=== PATIENT | female | born 1955 | race Caucasian/White ===

== ENCOUNTER → 2016-09-20 | Outpatient (CLI) | payer OTHER ==
[~2016-09-20] VITALS: Ht 154.9 cm; Wt 60.8 kg
[~2016-09-20] MED LIST: ACYCLOVIR 400400 MG PO; ALLEGRA ALLERG180 MG PO; ALLEGRA ALLERGY60 MG PO; ALLEGRA180 MG PO; AMLODIPINE BESY10 MG PO; AUGMENTIN 875875 MG PO; BENICAR40 MG PO; CALCIUM 500 +1 EAC5; CALCIUM CITRAT1 EA14 PO; CARAFATE 1 GM TA1 G1 PO; CARVEDILOL25 MG PO; CENTRUM SILVER1 EAC1 PO; CENTRUM SILVER1 EAC4 PO; CLARITIN10 M2 PO; COLACE100 MG PO; COUMADIN 1MG TAB1 M1 PO; COUMADIN 2.5MG2.5 M1 PO; COUMADIN 3 MG TA3 MG PO; COUMADIN 4 MG TA4 M1 PO; COUMADIN 5 MG TA5 M1 PO; DIAZEPAM 5 MG5 M1 PO; DULCOLAX5 MG PO; EXCEDRIN ASA F1 EAC1 PO; FENOFIBRATE200 MG PO; FISH OIL; FISH OIL 1,4001 EACH PO; FISH OIL OMEGA1 EAC1 PO; FISH OIL OMEGA1 EAC3 PO; FISHOIL PO; FLEXERIL PO; FLONASE 0.05%50 MCG NASAL; FLUOXETINE HCL40 MG PO; GEMFIBROZIL 60600 M1 PO; GLYCOLAX POWDER17 G1 PO; GLYCOLAX17 GM; HYDROCODON-ACE1 EAC1 PO; HYDROCODON-ACE1 EAC5 PO; HYDROCODON-ACE1 EAC8 PO; IBUPROFEN200 M2 PO; JANTOVEN1 MG PO; JANTOVEN2.5 MG PO; LEVOTHYROXIN0.025 MG PO; LIPITOR10 MG PO; LISINOPRIL40 MG PO; LORTAB 7.5/5001 TA3 PO; LOVENOX SQ; MELOXICAM7.5 MG PO; MIRALAX17 GM PO; MIRALAX255 GM PO; MORPHINE SULFAT60 MG PO; MS CONTIN 60 MG60 M1 GT; MS CONTIN 60 MG60 M1 PO; MS CONTIN 60 MG60 MG GT; MS CONTIN 60 MG60 MG PO; MS CONTIN15 MG PO; MS CONTIN30 MG PO; MS CONTIN60 MG PO; NEURONTIN 300300 M1 PO; NEURONTIN 300M300 M2 PO; NORCO 10-325 T1 EACH PO; OXYCODONE HCL 55 MG PO; PHENERGAN 25 MG25 M1 PO; PRILOSEC 20 MG20 MG PO; PROMETHAZINE12.5 M1 PO; SALINE NASAL SP30 ML NASAL; SENNA PO; SENOKOT-S1 TA1 PO; SYSTANE 0.3-0.1 EACH OPHTHALMIC; SYSTANE ULTRA1 EACH OP; TEARS NATURALE1 EACH OPHTHALMIC; ZOCOR 10 MG TAB10 MG PO; ZOLOFT100 MG PO; [UNRECOGNIZED DRUG - OTHER]
--- NOTE | ~2016-09-20 | HPC ---
[facility] [address] [place] [address] PAIN MANAGEMENT CONSULTATION Name: RUDY NINO Room #: REG Sandra Valero.#: [id number] Admission: 09/20/16 Attend Phys: Jacinto Grubbs MD Discharge: Date of : 51 Report #: [id number] THIS REPORT FOR: //name// CC: Nathaniel Grubbs DATE OF SERVICE: 09/20/2016 Followup visit for chronic leg pain. HISTORY PRESENT ILLNESS: The patient returns to pain clinic for followup. I see her every 3 months. She was seen by my partner, Dr. Bridges in July due to illness. 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 I assumed her care from Dr. Frank Jorge who moved from [place] in 2008. At that time, she was already receiving MS Contin at relatively high doses. These have been maintained now for nearly 8 years without any misuse, abuse or red flags. We have been renewing her medication because of her ongoing reports of good pain control and relative stability. In the era of CDC guidelines, I have been encouraging her to work aggressively at lowering her dose. She has a great deal of anxiety and has been very obsessive compulsive about her medications as she is about all aspects of her life. Coming down on medications is worrisome to her and in the office today. I reminded her that we had made a small adjustment in her hydrocodone without any difficulty at her last 3-month visit and I felt that today we can begin working on her long-acting morphine. She currently is on 180 mg of morphine a day and 30 mg of hydrocodone for breakthrough. I have suggested that we reduce her morphine dose from 60 mg 3 times daily to 60 mg twice daily and 30 mg once in the evening or night time for a total of 150 mg of morphine and 30 mg of breakthrough hydrocodone. This would be a total of 180 morphine mg equivalents. I am assuming that she will be able to make this adjustment over the next 3 months. That would be a reduction for her of 40 morphine mg equivalents over the last six months or roughly 20% of her prior dose. We will continue to make efforts to taper her medication. We have had some refusals of insurance companies to pay for medication and I have told her that we will to make sure that she is not burdened this as we continue to try and assume the lowest most effective dose for her pain control. Today, she reports that her leg pain is adequately controlled with her current regimen of reduced hydrocodone from last visit. She scores her pain as 6/10. Pain is worsened by activities, burning, sharp and stabbing throughout the leg. She has localized tenderness. PHYSICAL EXAMINATION: GENERAL: Very anxious and very obsessive compulsive. VITAL SIGNS: Blood pressure is 131/75, heart rate 67. Her BMI [place] 25.8[place] [address] PAIN MANAGEMENT CONSULTATION Name: RUDY NINO Room #: REG ELO Luevano#: [id number] Admission: 09/20/16 Attend Phys: Jacinto Grubbs MD Discharge: Date of : 51 Report #: [id number] EXTREMITIES: She has her legs very ____. IMPRESSION: 1. 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 2. Obsessive compulsive disorder. 3. Anxiety disorder with depression. 4. Management of high risk medication. PLAN: Under terms of our opioid agreement, I have reduced her medication to 150 mg a day of morphine and 30 mg of hydrocodone for breakthrough and a followup visit is scheduled in 3 months. All of the issues discussed at each visit were reviewed about safeguarding of medication. <ELECTRONICALLY SIGNED> By: Jacinto Grubbs MD 10/02/16 1130 [id number] Jacinto Grubbs MD /nt
[2016-09-20 12:48] VITALS: BP 131/75
== END | disposition home or self-care (01) ==
LOC: PAIN 08-18 06:20
DX: M31.9 Necrotizing vasculopathy, unspecified (principal); F41.9 Anxiety disorder, unspecified; F32.9 Major depressive disorder, single episode, unspecified; G89.29 Other chronic pain; Z87.891 Personal history of nicotine dependence

== ENCOUNTER → 2016-12-09 | Outpatient (CLI) | payer OTHER ==
[~2016-12-09] VITALS: Ht 154.9 cm; Wt 61.1 kg
--- NOTE | ~2016-12-09 | HPC ---
[facility] [place] [address] PAIN MANAGEMENT CONSULTATION Name: RUDY NINO Room #: REG [facility].#: [id number] Admission: 12/09/16 Attend Phys: Jacinto Grubbs MD Discharge: Date of : 51 Report #: [id number] THIS REPORT FOR: //name// CC: Nathaniel Mistry DATE OF SERVICE: 12/09/2016 DATE OF SERVICE: 12/09/2016 Followup visit for management of chronic leg pain. The patient was seen in the clinic today once again to discuss tapering her medications. She was agreeable to this today with some explanation of how we will continue to manage her pain. I have suggested that we add a small amount of gabapentin at night to help with sleep and also to help with a possible neuropathic component. Pain today is reported as 7, burning and tingling. She has basically had no significant change in her pain. Recently, she is grateful for the medication that helps her get through her day. PHYSICAL EXAMINATION: GENERAL: She is pleasant, alert and oriented. VITAL SIGNS: Blood pressure 127/71, heart rate 60. Her BMI is 25.5. EXTREMITIES: Leg is in a very tight support hoes. I did not remove the stocking today. IMPRESSION: 1. Chronic intractable left leg pain. This is believed to be secondary to vasculopathy, but although there may be neuropathic components. 2. Obsessive compulsive disorder. 3. Anxiety disorder with depression. 4. Management of high risk medication. PLAN: I have reduced her MS Contin to 60 mg morning, 30 mg noon and evening. I have added gabapentin 300 mg at bedtime. She will continue hydrocodone 10/325 mg 1 tablet every 8 hours as needed for the total of #90 tablets per month. Followup visit is planned in 3 months. We continue to make efforts to reduce her medication at each visit. By: [id number] Jacinto Grubbs MD /nt
[2016-12-09 14:10] VITALS: BP 127/71
== END | disposition home or self-care (01) ==
LOC: PAIN 07:11
DX: M79.605 Pain in left leg (principal); G89.29 Other chronic pain; F42.9 Obsessive-compulsive disorder, unspecified; F41.9 Anxiety disorder, unspecified; F32.9 Major depressive disorder, single episode, unspecified; Z87.891 Personal history of nicotine dependence

== ENCOUNTER → 2017-03-07 | Outpatient (CLI) | payer OTHER ==
[~2017-03-07] VITALS: Ht 154.9 cm; Wt 60.5 kg
[~2017-03-07] MED LIST changes: +MS CONTIN 30 MG30 MG GT
[2017-03-07 14:40] VITALS: BP 150/68
== END | disposition home or self-care (01) ==
LOC: PAIN 06:56
DX: M79.605 Pain in left leg (principal); G89.29 Other chronic pain; F41.9 Anxiety disorder, unspecified; F95.8 Other tic disorders; Z87.891 Personal history of nicotine dependence

== ENCOUNTER → 2017-09-08 | Outpatient (CLI) | payer OTHER ==
[~2017-09-08] VITALS: Ht 154.9 cm; Wt 60.3 kg
[~2017-09-08] MED LIST changes: +ALENDRONATE SOD70 MG PO; +COUMADIN 3 MG TA3 M1 PO; -LEVOTHYROXIN0.025 MG PO; +LYRICA 50 MG50 MG PO; +LYRICA 75 MG CA75 MG PO; +SYNTHROID50 MCG PO; +ZANTAC 150MG T150 MG PO
--- NOTE | ~2017-09-08 | HPC ---
[facility] [address] [place] [address] PAIN MANAGEMENT CONSULTATION Name: RUDY NINO Room #: REG [facility] Marylu.#: [id number] Admission: 09/08/17 Attend Phys: Jacinto Grubbs MD Discharge: Date of : 51 Report #: [id number] THIS REPORT FOR: //name// CC: Nathaniel Grubbs DATE OF SERVICE: 09/08/2017 Followup visit for management of chronic intractable pain with opioid agreement. The patient returns to pain clinic today for followup. I have steadily been tapering her opioid analgesics. At one point, she was on morphine sulfate 60 mg 3 times daily and hydrocodone 4 times a day for supplement. This worked successfully to help manage her pain. With the worship of the opioid crisis, the CDC guidelines to direct care, we have been taking stable patients like the patient and working hard to try and taper her. She has been responsive to this and has been willing to follow my recommendations. Today, I made significant reduction in her morphine, but have allowed her to take an additional hydrocodone per day. We will, however, reduce her morphine mg equivalents per day from 120 to 95 MME. This will bring her closer to the CDC guideline. One year ago, her morphine mg equivalent daily dose was above 200. She does not seem to have suffered much from this; although, she does tell me that her pain is not as well controlled as it was before. Her pain scores today are 8-9, although this is not atypical for her. She describes her pain as an aching, deep, sharp, throbbing swollen pain in her left leg. This has been present since 1997. PQRS review. She does not smoke nor does she use alcohol. She has an opioid agreement, which has been established over a decade ago. She has managed her medications carefully and is followed on a routine and regular basis. She is not hypertensive. She is not overweight, BMI of 25.1. She tries to exercise as much as possible. She is not a fall risk. MEDICATIONS: Reviewed and reconciled in detail. She remains on a blood thinner. PHYSICAL EXAMINATION: She is a pleasant and outgoing in our office. She is always a little bit anxious and obsessive compulsive. She showed these tendencies again today in our office. Examination of her leg reveals significant tenderness throughout the leg where she wears tight compression stockings. She walks with a stiff leg gait. IMPRESSION: 1. Vasculopathy with chronic pain. 2. Obsessive compulsive disorder. 3. Anxiety disorder. [address] [address] PAIN MANAGEMENT CONSULTATION Name: RUDY NINO Room #: REG CL Bassem#: [id number] Admission: 09/08/17 Attend Phys: Jacinto Grubbs MD Discharge: Date of : 51 Report #: [id number] 4. Management of high risk opioid medication with aggressive tapering of her morphine mg equivalency over the last 2 years. PLAN: I renewed medications, MS Contin 15 mg t.i.d. for a total of 45 and hydrocodone 10/325 one tablet q. 4h. for a total of 150. This will equal 95 morphine mg equivalents. Safeguarding the medications and careful management was recommended and will plan to see her back in the pain clinic in 3 months. <ELECTRONICALLY SIGNED> By: Jacinto Grubbs MD 10/19/17 1640 [id number] Jacinto Grubbs MD /nt
[2017-09-08 15:11] VITALS: BP 124/79
== END ==
LOC: PAIN 07:38
DX: M31.9 Necrotizing vasculopathy, unspecified (principal); F42.9 Obsessive-compulsive disorder, unspecified; F41.9 Anxiety disorder, unspecified; F11.90 Opioid use, unspecified, uncomplicated; Z79.899 Other long term (current) drug therapy

== ENCOUNTER → 2017-11-07 | Outpatient (CLI) | payer OTHER ==
[~2017-11-07] VITALS: Ht 154.9 cm; Wt 60.0 kg
--- NOTE | ~2017-11-07 | HPC ---
[facility] [address] [place] [address] PAIN MANAGEMENT CONSULTATION Name: RUDY NINO Room #: REG Sandra Valero.#: [id number] Admission: 11/07/17 Attend Phys: Jacinto Grubbs MD Discharge: Date of : 51 Report #: [id number] THIS REPORT FOR: //name// CC: Nathaniel Mistry DATE OF SERVICE: 11/07/2017 REASON FOR VISIT: Followup visit for management of chronic pain with vasculopathy. HISTORY OF PRESENT ILLNESS: The patient was in the clinic today for another 25-minute visit. Please see previous dictations for our extra time spent with the patient to help her with reassurance. She has an anxiety disorder and is obsessive compulsive. I talked openly with her about that. She knows I care about her. She is very focused now on her morphine milligram equivalents since we have pointed out this calculation to her. It should be noted that over the course of the years that I have taken care of her since 2007, she has managed exceptionally well with a combination of MS Contin, hydrocodone and in the past Neurontin. I consider her pain to be well managed due to the fact that she has not seen any additional physicians, has not had any Emergency Room visits and has not been hospitalized for pain. She has carefully managed her medication and I believe it has been of great benefit to her. At one point when her pain was well managed visit after visit, her dose of morphine was MS Contin 60 three times daily and hydrocodone 10/325 four tablets daily. This 220 morphine milligram equivalent is excessive by today standards and she has been very agreeable to try and reduce her dose. Today, she comes with color coded calculations documenting her previous use and current use. She has been for 2 months now at 95 morphine milligram equivalents. We reduced this over several stages. She is not doing well. Her pain is increased to the point that she cannot sleep well at night and is restless. Her is now sleeping on the couch. During the day, she finds that her pain is limiting her general activities of daily living and she cannot do as much. Her impact pain score has now increased 60/10 with the lower dose of medication. She is at low risk for addiction with a history only of obsessive compulsive disorder, depression and anxiety. PHYSICAL EXAMINATION: MUSCULOSKELETAL: She complains of an 8/10 pain. Her left leg is tender from groin to ankle. She is wearing a tight compression stocking. She walks with slightly antalgic features. NEUROLOGICAL: Her affect is anxious and obsessive compulsive. She is quite vipul, has become a good friend. She is extremely compliant. We [address] [address] PAIN MANAGEMENT CONSULTATION Name: RUDY NINO Room #: REG Sandra Valero.#: [id number] Admission: 11/07/17 Attend Phys: Jacinto Grubbs MD Discharge: Date of : 51 Report #: [id number] have reassessed her opioid risk tool and I have asked her to review again our opioid agreement. In that setting, I am increasing her medication back to 135 morphine milligram equivalents. She will go back to morphine 30 mg in the morning and evening and 15 mg in the midday. Hydrocodone 10/325 can be taken up to 4-5 times daily with 150 tablets a month. We will reassess in 2-3 months. She will safeguard her medications. <ELECTRONICALLY SIGNED> By: Jacinto Grubbs MD 11/28/17 1408 [id number] Jacinto Grubbs MD /nt
[2017-11-07 13:43] VITALS: BP 141/81
== END ==
LOC: PAIN 07:24
DX: M31.9 Necrotizing vasculopathy, unspecified (principal)

== ENCOUNTER → 2018-03-06 | Outpatient (CLI) | payer OTHER ==
[~2018-03-06] VITALS: Ht 154.9 cm; Wt 59.4 kg
[~2018-03-06] MED LIST changes: -ALENDRONATE SOD70 MG PO; -LYRICA 50 MG50 MG PO; -LYRICA 75 MG CA75 MG PO
--- NOTE | ~2018-03-06 | HPC ---
[facility] [place] [address] [place] [address] PAIN MANAGEMENT CONSULTATION Name: RUDY NINO Room #: REG [facility] Marylu.#: [id number] Admission: 03/06/18 Attend Phys: Jacinto Grubbs MD Discharge: Date of : 51 Report #: [id number] THIS REPORT FOR: //name// CC: NATHANIEL HARTLEY DO Nathaniel Grubbs DATE OF SERVICE: 03/06/2018 Followup visit for chronic left leg pain. The patient returns to pain clinic today and her visit was much shorter than her previous visits. She was in my clinic for about 25 minutes of jakg-ha-owty counseling. She is doing okay. She reports that her pain is still about a 7/10, but is grateful for the pain relief she gets from medication. We have tried to push her dose down as low as possible, but her current daily dose of morphine and a breakthrough hydrocodone puts her in a high category with an MME of 130. She takes 75 mg of long-acting morphine a day in addition to 5 hydrocodone 10/325 tablets. With this, she is getting by. She had no hospitalizations or additional treatments for her pain. She is able to get around and do day-to-day activities in the home. I told her that a sympathetic nerve block or an epidural block might provide some relief for her leg and we might be able to use that to help us push down her pain medication usage. She was on board with that when she left my office, but after speaking with her primary care physician and his reluctance to take her off of her anticoagulation therapy, we have decided against performing the injection at this time. She is concerned because her sister a year and half ago from a thrombotic stroke. PHYSICAL EXAMINATION: GENERAL: Today, she is her typical pleasant, but somewhat anxious self. She is alert and oriented without evidence of overmedication. VITAL SIGNS: Her blood pressure is 125/74, heart rate 60, respirations 14, O2 sat 96%. She is 5 feet, 1 inch; 131 pounds with a BMI of 28.6. EXTREMITIES: She has positive straight leg raising discomfort on the left. She wears tight compression garment on the leg, which is only minimally tender. IMPRESSION AND PLAN: PQRS continuation shows that she is on a blood thinner, which needs to be discontinued if we plan to continue discussions about an epidural. She is under treatment for hypertension. She is on an opioid agreement. Her risk assessment tool shows a score of 3, which is low and a functional assessment tool shows 60/70 score, which suggests that pain interferes with all activities [place] [address] PAIN MANAGEMENT CONSULTATION Name: RUDY NINO [facility] [id number] Admission: 03/06/18 Attend Phys: Jacinto Grubbs MD Discharge: Date of : 51 Report #: [id number] A followup visit is scheduled in the pain clinic in 2 months. Medications were renewed per agreement. By: [id number] Jacinto Grubbs MD /antonino
[2018-03-06 13:51] VITALS: BP 115/74
== END ==
LOC: PAIN 01-23 14:58
DX: M79.605 Pain in left leg (principal); G89.29 Other chronic pain; I10 Essential (primary) hypertension; Z79.891 Long term (current) use of opiate analgesic

== ENCOUNTER → 2018-06-26 | Outpatient (CLI) | payer OTHER ==
[~2018-06-26] VITALS: Ht 152.4 cm; Wt 57.4 kg
[~2018-06-26] MED LIST changes: +ALENDRONATE SOD70 MG PO; +LYRICA 50 MG50 MG PO; +LYRICA 75 MG CA75 MG PO
--- NOTE | ~2018-06-26 | HPC ---
[facility] [address] [address] [address] PAIN MANAGEMENT CONSULTATION Name: RUDY NINO Room #: REG [facility] Marylu.#: [id number] Admission: 06/26/18 Attend Phys: Jacinto Grubbs MD Discharge: Date of : 51 Report #: [id number] THIS REPORT FOR: //name// CC: Nathaniel Mistry DATE OF SERVICE: 06/26/2018 Followup visit for chronic intractable pain and anxiety. The patient returns to pain clinic today for renewal of her medications under terms of our written agreement. We see her at 2-month intervals. We work to taper her medication and she is at a lower dose than she has been previously and is doing reasonably well, but still has ongoing pain that she describes daily as a 7-8/10. The pain is in her leg and has been diagnosed as vasculopathy of sorts. She has responded well to medication without complications or side effects. Medication provides dramatic relief in pain as she reports and she is able to do much more throughout the day with medication than without. She has no significant side effects and carefully safeguards her medication. We currently are providing her with morphine long acting 30 mg twice a day and 15 mg in the midday for a total of 75 mg. She uses hydrocodone for breakthrough pain and I allow her 5 tablets a day for another 50 MME. Her total MME is now down to 125. She remains at a dose above 90 morphine milligram equivalents and I have considered again reducing her dose. She has been willing to follow my instructions and has been able to make adjustments without too much difficulty. She has been undergoing a fair amount of dental work. She reports that this increases her oral pain dramatically. Many of our opioid tolerant patients find that they cannot tolerate pain very well without opioids and a new acute pain episode oftentimes requires supplement of her usual doses. I allowed her to take one extra pill during her dental surgery. She is at low risk for addiction primarily scoring 2 points for obsessive compulsive disorder and another point for depression. She has no personal history of substance abuse or family history of substance abuse. PHYSICAL EXAMINATION: Today, she is pleasant, a bit OCD. We provided with instructions both written and verbally and she oftentimes needs to reinforce this on multiple times as she did today. Blood pressure is 98/45, heart rate 72. BMI is 24.7. She had her leg tightly wrapped with a compression stocking. She ambulates without too much difficulty. Mild antalgic features are noted. [address] [address] PAIN MANAGEMENT CONSULTATION Name: RUDY NINO Room #: REG CL Bassem#: [id number] Admission: 06/26/18 Attend Phys: Jacinto Grubbs MD Discharge: Date of : 51 Report #: [id number] IMPRESSION: 1. Chronic intractable pain syndrome with vasculopathy. 2. Management of high risk medications. 3. Chronic anxiety disorder. 4. History of depression. 5. Symptoms consistent with obsessive compulsive disorder. PLAN: Medications renewed under terms of our written agreement and we will see her back in the pain clinic. She will be taking 75 mg of morphine a day and 50 mg of hydrocodone. She promises to always keep her medication safeguarded and locked away. By: [id number] Jacinto Grubbs MD /nt
[2018-06-26 14:20] VITALS: BP 98/45
== END ==
LOC: PAIN 07:00
DX: F41.9 Anxiety disorder, unspecified (principal); G89.4 Chronic pain syndrome; F42.9 Obsessive-compulsive disorder, unspecified; Z79.899 Other long term (current) drug therapy; Z86.59 Personal history of other mental and behavioral disorders

== ENCOUNTER → 2018-08-24 | Outpatient (CLI) | payer OTHER ==
[~2018-08-24] VITALS: Ht 152.4 cm; Wt 55.6 kg
[~2018-08-24] MED LIST changes: +LIPITOR 20 MG T20 M1 PO; +TRICOR145 MG PO
--- NOTE | ~2018-08-24 | HPC ---
[facility] [address] [place] [address] PAIN MANAGEMENT CONSULTATION Name: RUDY NINO Room #: REG [facility].#: [id number] Admission: 08/24/18 Attend Phys: Jacinto Grubbs MD Discharge: Date of : 51 Report #: [id number] THIS REPORT FOR: //name// CC: NATHANIEL HARTLEY DO Nathaniel Grubbs DATE OF SERVICE: 08/24/2018 Followup visit for left leg pain with vasculopathy and chronic anxiety. The patient returns to the pain clinic today for another 45-minute to 1-hour visit in the pain clinic. Over half of that was spent in consultation with me. She continues to use high-dose opioids on a scheduled basis to provide relief of her pain. In the past, we have discussed interventional techniques. She is on an anticoagulant because of her vascular disease and we have been unable to perform injections. I have briefly in the past mentioned to her spinal cord stimulation, but because of her anxiety and her OCD, I have been concerned that complex therapy might be more of a hindrance than of benefit. With her ongoing requirements for high-dose opioid therapy, I felt that we should discuss other alternatives at this time. She describes her daily pain as a 6-7 in intensity; worse with standing and weightbearing. Qualities include sharp, burning and throbbing. It is worse in the ankle and calf and then radiates up to the leg. It is relieved during the day by tight compression stockings. It is better at night. MEDICATIONS: Reviewed and reconciled. In addition to the warfarin, she is on carvedilol, amlodipine, cyclobenzaprine, lisinopril, fluticasone, levothyroxine, fexofenadine, [place] 3, morphine 30 mg morning and evening 15 mg during the day and hydrocodone 10/325 q. 4 hours, roughly on schedule taking 5 per day. Her MME is 125. We will consider tapering her medications further at followup visit. PHYSICAL EXAMINATION: GENERAL: She is pleasant as usual, but somewhat anxious and her obsessive compulsive nature is evident in our discussions regarding the spinal cord stimulation therapy as she asks multiple questions. EXTREMITIES: She independently moves from sitting to standing position. Her gait is nonantalgic. Legs are tender to the touch. She has tight compression stockings. IMPRESSION: 1. 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 [address] [address] PAIN MANAGEMENT CONSULTATION Name: RUDY NINO Room #: REG CLSandra Luevano#: [id number] Admission: 08/24/18 Attend Phys: Jacinto Grubbs MD Discharge: Date of : 51 Report #: [id number] 2. Anxiety and obsessive compulsive disorder. 3. History of depression. 4. Management of high-dose opioid therapy under the terms of written opioid agreement. We reviewed our opioid agreement today and I reviewed the prescription drug monitoring programming information from [facility]. There are no unexpected entries. We have discussed the importance of safeguarding her medications. Previous buccal drug testing has been reviewed. Our plan is for followup in 1-3 months. She was given information from [employer] regarding spinal cord stimulation and I will be available to answer questions. I talked about the steps required for ultimate implant, which include a visit to a clinical psychologist followed by a trial, during which time, she would have to be off her anticoagulation therapy and then surgery, which would also require discontinuation of anticoagulation therapy. We may need to discuss this further with Dr. Hartley. By: [id number] Jacinto Grubbs MD /nt
[2018-08-24 14:09] VITALS: BP 108/55
--- NOTE | 2018-08-24 14:21 | NUR ---
Pain Clinic Assessment: 1. History of Osteoarthritis: hands History of Rheumatoid Arthritis: Not Applicable 2. Height: 5 ft. 0 in. 152.4 cm. Weight: 122.6 lb. oz. 55.611 kg. Patient's BMI: 23.9 3. Vital Signs: BP: 108/55 Pulse: 61 Resp: 14 Temp: 02 Sat: 100 ECG Mon: 4. Pain Intensity: 6-7 5. Fall Risk: Dizziness: N Needs help standing or walking: N Fallen in the last 3 months: N Fall risk comments: 6. Patient on Blood Thinner: Warfarin (Coumadin) 7. History of Hypertension: Y 8. Opioid Therapy greater than 6 weeks: Y Opiate Contract Signed: 11/07/17 9. Risk Assessment Tool Provided: 3/LOW 10. Functional Assessment Tool: 11. Recreational Drug Use: Never Drug Type: Tobacco Use: Former Smoker Tobacco Type: Amount or Packs/day: How Many Years: Alcohol Use: No Frequency: Quant:
== END ==
LOC: PAIN 07:35
DX: I87.002 Postthrombotic syndrome without complications of left lower extremity (principal); I73.9 Peripheral vascular disease, unspecified; F32.9 Major depressive disorder, single episode, unspecified; F41.9 Anxiety disorder, unspecified; F42.9 Obsessive-compulsive disorder, unspecified; Z79.891 Long term (current) use of opiate analgesic; Z79.899 Other long term (current) drug therapy

== ENCOUNTER → 2018-10-09 | Outpatient (CLI) | payer OTHER ==
[~2018-10-09] VITALS: Ht 152.4 cm; Wt 54.3 kg
--- NOTE | ~2018-10-09 | HPC ---
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 The patient is in the pain clinic today for renewal of medication. She has still one prescription remaining on the two month prescription that I provided for her on 08/24/2018. She filled her first prescription on 09/10/2018 and the second prescription will be filled today. I will renew her prescription, but I have after some discussion reached an agreement with her that we will continue to taper her high dose morphine equivalent from 125 to 110 by dropping her MS Contin to two 15 mg tablets per day and the 30 mg tablet will remain for first thing in the morning. She takes hydrocodone 5 times daily 2 in the morning, 2 in the evening and 1 at bedtime. This in addition to cyclobenzaprine allows her to remain functional. PHYSICAL EXAMINATION: Pleasant, highly anxious and obsessive compulsive. Blood pressure is 137/70, heart rate 60, respirations 14 and BMI 23.4. She wears tight support stockings on her left leg. There is diffuse tenderness. She walks with nonantalgic features. IMPRESSION: 1. Chronic left lower extremity pain, postphlebitic syndrome and peripheral vascular insufficiency. 2. Anxiety and obsessive compulsive disorder. 3. History of depression. 4. Management of high risk medication under terms of written opioid agreement. PLAN: I renewed her medications at a dose of 60 mg of morphine per day, 15 twice daily and 30 mg once at noon or in the morning and hydrocodone 10/325, 5 tablets daily as directed. [address] [address] PAIN MANAGEMENT CONSULTATION Name: RUDY NINO Room #: [facility].#: [id number] Admission: 10/09/18 ������������������ Attend Phys: Jacinto Grubbs MD Discharge: ������������������ Date of : 51 Report #: [id number] We reviewed our opioid agreement in detail. Buccal drug screen will be performed once annually. ��������������������������������������������� ���������������������������������������� By: ��������������������������������������������� [id number] Jacinto Grubbs MD /nt
[2018-10-09 14:43] VITALS: BP 137/70
--- NOTE | 2018-10-09 14:58 | NUR ---
Pain Clinic Assessment: 1. History of Osteoarthritis: hands History of Rheumatoid Arthritis: Not Applicable 2. Height: 5 ft. 0 in. 152.4 cm. Weight: 119.8 lb. oz. 54.341 kg. Patient's BMI: 23.4 3. Vital Signs: BP: 137/70 Pulse: 60 Resp: 14 Temp: 02 Sat: 100 ECG Mon: 4. Pain Intensity: 7 5. Fall Risk: Dizziness: N Needs help standing or walking: N Fallen in the last 3 months: N Fall risk comments: 6. Patient on Blood Thinner: Warfarin (Coumadin) 7. History of Hypertension: Y 8. Opioid Therapy greater than 6 weeks: Y Opiate Contract Signed: 11/07/17 9. Risk Assessment Tool Provided: 3/LOW 10. Functional Assessment Tool: 11. Recreational Drug Use: Never Drug Type: Tobacco Use: Former Smoker Tobacco Type: Amount or Packs/day: How Many Years: Alcohol Use: No Frequency: Quant:
== END ==
LOC: PAIN 07:18
DX: G89.29 Other chronic pain (principal); F41.9 Anxiety disorder, unspecified; F32.9 Major depressive disorder, single episode, unspecified; F42.9 Obsessive-compulsive disorder, unspecified; Z79.899 Other long term (current) drug therapy

== ENCOUNTER → 2018-12-28 | Outpatient (CLI) | payer OTHER ==
[~2018-12-28] VITALS: Ht 152.4 cm; Wt 52.7 kg
[~2018-12-28] MED LIST changes: +VOLTAREN GEL 1100 G2 TOP
[2018-12-28 13:13] VITALS: BP 138/66
--- NOTE | 2018-12-28 13:18 | NUR ---
Pain Clinic Assessment: 1. History of Osteoarthritis: hands History of Rheumatoid Arthritis: Not Applicable 2. Height: 5 ft. 0 in. 152.4 cm. Weight: 116.2 lb. oz. 52.708 kg. Patient's BMI: 22.7 3. Vital Signs: BP: 138/66 Pulse: 67 Resp: 16 Temp: 02 Sat: 99 ECG Mon: 4. Pain Intensity: 9 5. Fall Risk: Dizziness: N Needs help standing or walking: N Fallen in the last 3 months: N Fall risk comments: 6. Patient on Blood Thinner: Warfarin (Coumadin) 7. History of Hypertension: Y 8. Opioid Therapy greater than 6 weeks: Y Opiate Contract Signed: 11/07/17 9. Risk Assessment Tool Provided: 3/LOW 10. Functional Assessment Tool: 11. Recreational Drug Use: Never Drug Type: Tobacco Use: Former Smoker Tobacco Type: Amount or Packs/day: How Many Years: Alcohol Use: No Frequency: Quant:
--- NOTE | 2019-01-01 14:57 | HPC ---
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 HISTORY OF PRESENT ILLNESS: This is a 63-year-old female who returns to the pain clinic today for medication refill. She tells me that she has not been as well the last [address] Grubbs decreased her medication. She tells me that her left leg has been hurting more, unable to put weight on it like she has in the past. She tells me that she is having to keep it elevated more often since decrease in her pain medicine. She tells me her is having to help her out significantly around the house, which she has not needed to do before. Her pain score is 7/10, all in the left groin and left ankle, but some occasionally in the lower back. She does have a pain of 7/10, which is a throbbing, sharp, burning pain in her leg, worse with standing and walking, better with her medications and her compression stocking hose that she wears as well as elevating her leg. ALLERGIES: URECHOLINE, SULFA, NITROFURANTOIN. MEDICATIONS: Morphine sulfate 15 mg b.i.d., morphine sulfate 30 mg daily, hydrocodone 10/325 every 4 hours, TriCor 145 mg daily, Lipitor 20 mg daily, Fosamax weekly, acyclovir as needed, Zantac 150 mg at bedtime, fish oil, Zoloft 100 mg at bedtime, Coumadin 2 mg daily, multivitamin daily, Rosibel daily, Synthroid 50 mcg daily, Flonase daily, calcium citrate, Zestril 40 mg at bedtime, Flexeril 10 mg at bedtime, amlodipine 5 mg at bedtime, Coreg 25 mg b.i.d. PQRS: She has a history of osteoarthritis in her hands. She denies any rheumatoid arthritis. 1. Height is 5 feet, weight is 116, BMI is 22. 2. Vital signs 138/66, pulse is 67, respirations 16, oxygen sat is 99. Pain score is 9/10 3. Fall risk. Denies dizziness. She does not need help with walking or standing. Has not fallen in the last 3 months. The patient is on Coumadin. She does take medicines also for hypertension. Opiate therapy is greater than 6 weeks; therefore, an updated signed contract is on the chart. Her risk assessment tool is low. Her functional assessment is 60/70. 4. Recreational drug use. She is a former smoker and does not drink alcohol. [address] [address] PAIN MANAGEMENT CONSULTATION Name: RUDY NINO Room #: REG [facility]#: [id number] Admission: 12/28/18 ������������������ Attend Phys: Celsa Ha Discharge: ������������������ Date of : 51 Report #: [id number] We did check the prescription monitoring system. The patient is filling appropriately for her medications. There was a fill from the pharmacy for morphine sulfate IR 30 mg, but the patient caught did not take any of these medicines and returned to the pharmacy where they reissued morphine sulfate ER pills after adjusting it with the insurance company. The patient was without pills for 2 days. This was not her fault that it does show aberrant fill on her medication list, she tells me she safeguards her medications. PHYSICAL EXAMINATION: GENERAL: This is a pleasant, very anxious, excessive compulsive 63-year-old female who is alert and orientated placing her pain score at 7/10 today. Her affect is appropriate. HEENT: Normocephalic, atraumatic. Extraocular eye muscles are intact. Mucous membranes are dry. Hearing is adequate. MUSCULOSKELETAL: She complains of lower back pain, pain in her left leg that radiates from her groin all the way down to her toes. Diffuse tenderness throughout. She walks with an antalgic gait. She had positive straight leg raising on the left leg. The patient also complains of some numbness that is radiating down her left leg. IMPRESSION: 1. Chronic left lower extremity post phlebitic syndrome and peripheral vascular insufficiency. 2. Lumbar radiculopathy. 3. Anxiety and obsessive compulsive disorder. 4. History of depression. 5. Management of high risk medications under terms of written opioid agreement. We reviewed the fact that opiate medications are being used to provide analgesia adequate to support activities of daily living, not attempting to achieve a specific pain score on the 0-10 Visual Analog Scale. The current opiate medications are providing sufficient analgesia to allow the patient to participate in activities of daily living. The patient is not exhibiting any aberrant behavior suggestive of drug diversion. The patient is not having any adverse reactions to medications. The patient is not suffering from daytime somnolence or mental acuity changes. The patient is managing opiate-induced constipation with appropriate [id number] agents and dietary considerations. The patient was counseled on concern for caution with operating a motor vehicle while using opiate medications. A physical exam was performed and the patient's functional status was evaluated. All patients with back pain were advised against the bed rest greater than 4 days and were advised to return to normal activities. Pain score assessment was noted and the treatment plan was reviewed with the patient. All current medications, both prescribed and OTC were reviewed and reconciled on the [facility] [address] [place] [address] PAIN MANAGEMENT CONSULTATION Name: RUDY NINO Room #: [facility] Marylu.#: [id number] Admission: 12/28/18 ������������������ Attend Phys: Celsa Ha Discharge: ������������������ Date of : 51 Report #: [id number] electronic medical record. Tobacco screening was accomplished and smoking cessation was advised when indicated. BMI was noted and diet/exercise modification was recommended for all patients following outside normal parameters. I reviewed with the patient today their responsibilities to safeguard prescription medications, reviewed their responsibility to utilize medications only as prescribed by the physician. They are to seek and receive pain medications only from 1 physician group ( [facility]). They are to use 1 pharmacy and keep the clinic informed if they change pharmacies. Their responsibilities include making followup visits in a timely fashion and to avoid abrupt discontinuation of medication usage. Their responsibilities further include bringing their medications (bottles from the pharmacy with residual pills) to the visit for possible confirmation of pill counts and the patient understands it is their responsibility to submit to random drug screens to ensure both that the medications prescribed are present, and that no other controlled substances are present. All prescriptions provided today were generated electronically. PLAN: 1. We discussed treatment options with the patient today. The patient feels that her pain has increased significantly since her last decrease in her narcotic medications from 125 morphine mEq to 110. She tells me that her leg is hurting significantly worse. I did spend greater than 30 minutes with the patient today discussing multiple issues. One was the CDC guidelines and trying to decrease people to 90 or below. I do not believe will ever get her to 90 morphine mEq. She has started it above 200 and has made great strides in decreasing as she is to 110. We will keep her at her current dose today with no changes. Scripts given for MS Contin 30 mg once a day and MS Contin 15 mg b.i.d. as well as hydrocodone 10/325, #150. These scripts were given for today with 4-week refill. 2. The patient is on Coumadin therapy before her postphlebitic syndrome and therefore unable to take oral and nonsteroidal anti-inflammatories. We have discussed a trial of Voltaren gel that the patient may put on her hips, knees, up her left extremity to see if that is helpful in relieving some of her discomfort. The patient was instructed to use this first thing in the morning before she puts her compression panty hose on and then before she goes at night when she is not wearing them. She verbalizes understanding and is willing to try this medicine. 3. We discussed her lower back radicular pain and her increasing leg pain that she is having with her inability to walk and inability to clean house and function as well as she able to in the past. Dr. Grubbs did come and see the patient and examined her as well and we believe that a lumbar epidural steroid injection may help reduce some of this pain. We explained the risks and the procedure to the patient, explained that she would have to be off her Coumadin [facility] [address] [place] [address] PAIN MANAGEMENT CONSULTATION Name: RUDY NINO Room #: [facility]#: [id number] Admission: 12/28/18 ������������������ Attend Phys: Celsa Ha Discharge: ������������������ Date of : 51 Report #: [id number] for 5 days having an INR of 1.5 or below that she would need to get confirmation from her primary care doctor before we are able to schedule this injection and we must seek authorization for a lumbar epidural steroid injection for lumbar radiculopathy as well. 4. We will schedule the patient back after we have approval from the primary care doctor for this injection. The patient verbalizes understanding and plan of care to see if this will help decrease some of her pain. 5. The patient is seen with Dr. Grubbs today who collaborated care. We will see the patient back in the near future for her injection. ��������������������������������������������� <ELECTRONICALLY SIGNED> ���������������������������������������� By: Celsa Ha ��������������������������������������������� 01/01/19 [id number] Celsa Ha /nt
== END ==
LOC: PAIN 06:53
DX: M54.16 Radiculopathy, lumbar region (principal); F32.9 Major depressive disorder, single episode, unspecified; F41.9 Anxiety disorder, unspecified; F42.9 Obsessive-compulsive disorder, unspecified; I73.9 Peripheral vascular disease, unspecified; Z79.891 Long term (current) use of opiate analgesic; Z79.899 Other long term (current) drug therapy

== ENCOUNTER → 2019-04-19 | Outpatient (CLI) | payer OTHER ==
[~2019-04-19] VITALS: Ht 154.9 cm; Wt 50.1 kg
[~2019-04-19] MED LIST changes: +MORPHINE SULFAT30 M2 PO
--- NOTE | ~2019-04-19 | HPC ---
[facility] [address] [place] [address] PAIN MANAGEMENT CONSULTATION Name: RUDY NINO Room #: [facility].#: [id number] Admission: 04/19/19 Attend Phys: Jacinto Grubbs MD Discharge: Date of : 51 Report #: [id number] THIS REPORT FOR: //name// CC: Nathaniel Grubbs DATE OF SERVICE: 04/19/2019 Followup visit for chronic pain due to vasculopathy, history of deep venous thrombosis. Chronic anxiety, medication management. The patient returns to pain clinic today in followup. She was most recently seen by Celsa Ha. I was in the room during that visit and we discussed and collaborated on her care. We have done a good job of reducing her opioids from her higher MME and she did not request today an increase her medication. I have agreed to renew her medications at current level, which is 60 mg of MS Contin per day in divided dose and she is allowed to take hydrocodone 150 tablets per month. Although this is high, in general terms, it is a substantial improvement for the patient who is on doses close to twice as high. She is clearly a legacy patient. The chart reflects her chronic anxiety and obsessive compulsive disorder. She is a delightful female. We have an excellent relationship. She understands that we are doing our best to try and help her. I talked to her today about getting out of the house and doing more. She tends to be somewhat of a shutten. She does not get out frequently. We talked about things that she can do to enjoy herself. The fall weather may allow her to get outside more. She has some kinesophobia and does not like to move. She is, however, doing her best and exercising on a daily basis. She says at times she walks very slowly on the treadmill for up to an hour. Her pace is quite slow. She says she walks 1 mile in an hour. That would be exceptionally slow. While she says she does not get out often, she does say that she and her are leaving for their wed anniversary in [place] in the upcoming week. We talked about the importance of using this as a diversion and distraction for her chronic pain. PQRS REVIEW: 1. Positive for osteoarthritis of the hands. 2. Her BMI is chronically low at 20.9. 3. Vital signs: Blood pressure 131/55, heart rate 64, respirations 14. 4. Pain intensity score is 7/10. 5. No fall risk. [facility] [address] [place] [address] PAIN MANAGEMENT CONSULTATION Name: RUDY NINO Room #: REG [facility]#: [id number] Admission: 04/19/19 Attend Phys: Jacinto Grubbs MD Discharge: Date of : 51 Report #: [id number] 6. She is on Coumadin for DVT and vasculopathy. 7. A history of hypertension, also under treatment by Dr. Harding. 8. She is on an opioid agreement, which was renewed in 2018. 9. Opioid risk tool has been completed and her score is a 3, considered a low risk for addiction. 10. She has completed a functional assessment tool, which is 55/70, this suggests a high impact of her pain on day-to-day activities. 11. She denies use of tobacco and alcohol. PHYSICAL EXAMINATION: VITAL SIGNS: As noted above. GENERAL: She is a very pleasant, but anxious female. She is a bit obsessive compulsive by her own assessment. She moves easily from sitting to standing position, and ambulates with mild antalgic features. During the time sitting in my office, she kept her leg elevated on a pillow. IMPRESSION: 1. Chronic intractable lower extremity pain, postphlebitic syndrome and peripheral vascular insufficiency. 2. Some lumbar radiculopathy. 3. Anxiety and obsessive compulsive disorder and chronic depression, mild. 4. Management of high risk medications under terms of written agreement. PLAN: Her medications were renewed for her under terms of an opioid agreement. I have checked the prescription drug monitoring program and there are no unexpected entries. She will carefully safeguard her medications per our agreement. I plan to see her back in the pain clinic in 3 months. By: [id number] Jacinto Grubbs MD /nt
[2019-04-19 14:26] VITALS: BP 131/55
--- NOTE | 2019-04-19 14:37 | NUR ---
Pain Clinic Assessment: 1. History of Osteoarthritis: hands History of Rheumatoid Arthritis: Not Applicable 2. Height: 5 ft. 1 in. 154.9 cm. Weight: 110.4 lb. oz. 50.077 kg. Patient's BMI: 20.9 3. Vital Signs: BP: 131/55 Pulse: 62 Resp: 14 Temp: 02 Sat: 100 ECG Mon: 4. Pain Intensity: 6-7 5. Fall Risk: Dizziness: N Needs help standing or walking: N Fallen in the last 3 months: N Fall risk comments: 6. Patient on Blood Thinner: Warfarin (Coumadin) 7. History of Hypertension: Y 8. Opioid Therapy greater than 6 weeks: Y Opiate Contract Signed: 11/07/17 9. Risk Assessment Tool Provided: LOW RISK 10/22 10. Functional Assessment Tool: 11. Recreational Drug Use: Never Drug Type: Tobacco Use: Former Smoker Tobacco Type: Amount or Packs/day: How Many Years: Alcohol Use: No Frequency: Quant:
== END ==
LOC: PAIN 08:19
DX: G89.29 Other chronic pain (principal); M79.669 Pain in unspecified lower leg; F41.9 Anxiety disorder, unspecified; M54.16 Radiculopathy, lumbar region; F32.9 Major depressive disorder, single episode, unspecified; F42.9 Obsessive-compulsive disorder, unspecified; I73.9 Peripheral vascular disease, unspecified; Z86.718 Personal history of other venous thrombosis and embolism

== ENCOUNTER → 2019-06-21 | Outpatient (CLI) | payer OTHER ==
[~2019-06-21] VITALS: Ht 152.4 cm; Wt 48.5 kg
[2019-06-21 13:57] VITALS: BP 106/60
--- NOTE | 2019-06-21 13:58 | NUR ---
Pain Clinic Assessment: 1. History of Osteoarthritis: hands History of Rheumatoid Arthritis: Not Applicable 2. Height: 5 ft. 0 in. 152.4 cm. Weight: 107.0 lb. oz. 48.535 kg. Patient's BMI: 20.9 3. Vital Signs: BP: 106/60 Pulse: 65 Resp: 16 Temp: 02 Sat: 96 ECG Mon: 4. Pain Intensity: 7 5. Fall Risk: Dizziness: N Needs help standing or walking: N Fallen in the last 3 months: N Fall risk comments: 6. Patient on Blood Thinner: Warfarin (Coumadin) 7. History of Hypertension: Y 8. Opioid Therapy greater than 6 weeks: Y Opiate Contract Signed: 11/07/17 9. Risk Assessment Tool Provided: LOW RISK 10/22 10. Functional Assessment Tool: 11. Recreational Drug Use: Never Drug Type: Tobacco Use: Former Smoker Tobacco Type: Amount or Packs/day: How Many Years: Alcohol Use: No Frequency: Quant:
--- NOTE | 2019-06-22 10:59 | HPC ---
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 HISTORY OF PRESENT ILLNESS: This is a 63-year-old very anxious female who returned to the pain clinic today for refill of her medications that she uses to help treat her ongoing chronic pain due to vasculopathy, has a history of deep vein thrombosis in her left leg. She reports pain is located in her left groin all the way down to her foot. She does wear compression hose in the left leg at all times. Reports a pain score of 7/10 today. It is a sharp, throbbing, burning pain that is worse with standing or walking. She finds her medications and her compression hose very beneficial. She denies any problems with constipation. She does combat this with the diet and no medications. She does not experience any overmedication feeling or daytime sleepiness. ALLERGIES: URECHOLINE, SULFA, NITROFURANTOIN. CURRENT MEDICATIONS: MS Contin 15 mg b.i.d., MS Contin 30 mg daily, hydrocodone 10/325 up to 5 tablets a day, diclofenac gel p.r.n., TriCor 145 mg daily, Lipitor 20 mg daily, Fosamax 70 mg weekly, acyclovir p.r.n., Zantac, fish oil, Zoloft 100 mg at bedtime, Coumadin 2 mg daily, multivitamin, Rosibel, Synthroid 50 mcg daily, calcium, Zestril 40 mg at bedtime, Flexeril 10 mg at bedtime, amlodipine 10 mg at bedtime, Coreg 25 mg b.i.d. PQRS: 1. She has a history of osteoarthritis in her hands. Denies rheumatoid arthritis. 2. Height is 5 feet, weight is 107, BMI is 20. 3. Vital signs 106/60, pulse is 65, respirations 16, oxygen sat is 96. 4. Pain score is 7/10. 5. Denies dizziness, does not need help walking or standing, has not fallen in the last 3 months. 6. The patient is on Coumadin and also hypertension medicines. 7. Opioid therapy is greater than 6 weeks; therefore, an opiate signed contract is on the chart. Risk assessment tool is low. Functional assessment is 55/70. 8. Recreational drug use, she denies. She is a former smoker and does not drink alcohol. [address] [address] PAIN MANAGEMENT CONSULTATION Name: RUDY NINO Room #: REG [facility]#: [id number] Admission: 06/21/19 Attend Phys: Celsa Ha Discharge: Date of : 51 Report #: [id number] According to the prescription monitoring system, the patient is filling appropriately for her medications. She is due in about 2 weeks for this medicine. There is a recent drug screen on the chart that is appropriate for all of her medications as well. PHYSICAL EXAMINATION: GENERAL: This is a very anxious, pleasant 63-year-old female who appears her stated age, placing her current pain score today at 7/10. HEENT: Normocephalic, atraumatic. Extraocular eye muscles are intact. Mucous membranes are moist. MUSCULOSKELETAL: She moves from sitting to standing position without difficulty. Ambulates with a mild antalgic features. She has a compression hose on her left leg where she has tenderness and no edema noted today. She has tenderness in her lower back that radiates into her left leg. Her lower extremity strength judged to be 5/5 in all major muscle groups. ASSESSMENT: 1. Chronic left lower extremity postphlebitic syndrome and peripheral vascular insufficiency. 2. Lumbar radiculopathy. 3. Anxiety and obsessive compulsive disorder. 4. History of depression. 5. Management of high risk medications under terms of written opioid agreement. We reviewed the fact that opiate medications are being used to provide analgesia adequate to support activities of daily living, not attempting to achieve a specific pain score on the 0-10 Visual Analog Scale. The current opiate medications are providing sufficient analgesia to allow the patient to participate in activities of daily living. The patient is not exhibiting any aberrant behavior suggestive of drug diversion. The patient is not having any adverse reactions to medications. The patient is not suffering from daytime somnolence or mental acuity changes. The patient is managing opiate-induced constipation with appropriate zswr-bzl-burqiiw agents and dietary considerations. The patient was counseled on concern for caution with operating a motor vehicle while using opiate medications. A physical exam was performed and the patient's functional status was evaluated. All patients with back pain were advised against the bed rest greater than 4 days and were advised to return to normal activities. Pain score assessment was noted and the treatment plan was reviewed with the patient. All current medications, both prescribed and OTC were reviewed and reconciled on the electronic medical record. Tobacco screening was accomplished and smoking cessation was advised when indicated. BMI was noted and diet/exercise modification was recommended for all patients following outside normal parameters. [address] [place] [address] PAIN MANAGEMENT CONSULTATION Name: RUDY NINO [facility] [id number] Admission: 06/21/19 Attend Phys: Celsa CHRISTIAN Ha Discharge: Date of : 53 Report #: [id number] I reviewed with the patient today their responsibilities to safeguard prescription medications, reviewed their responsibility to utilize medications only as prescribed by the physician. They are to seek and receive pain medications only from 1 physician group ( [facility]). They are to use 1 pharmacy and keep the clinic informed if they change pharmacies. Their responsibilities include making followup visits in a timely fashion and to avoid abrupt discontinuation of medication usage. Their responsibilities further include bringing their medications (bottles from the pharmacy with residual pills) to the visit for possible confirmation of pill counts and the patient understands it is their responsibility to submit to random drug screens to ensure both that the medications prescribed are present, and that no other controlled substances are present. All prescriptions provided today were generated electronically. PLAN: 1. We discussed treatment options with the patient today. We had discussed possible lumbar epidural steroid injection in her February visit. She did see Dr. Jacinto Grubbs last month, she was unable to have this performed because she is unable to go off her anticoagulation, so therefore she is managing her pain with medicines. She is doing quite well with her current dose despite it being over the CDC guidelines. She has been titrated down slowly from her original dose, but still above the guidelines at 110 morphine mEq per day according to their guidelines. Scripts given today for MS Contin 15 mg b.i.d. #60, and MS Contin 30 mg once daily, hydrocodone 10/325, #150 and max of 5 a day. These are to be released on 06/29 or after and 07/27 or after. 2. We discussed the patient's urine drug screen from her last visit that is appropriate for her medications that she is prescribed. 3. The patient is seen in collaboration today with Dr. Jacinto Grubbs. She will make an appointment in 2 months for followup for medications. <ELECTRONICALLY SIGNED> By: Celsa Ha 06/22/19 1059 [id number] Celsa Ha /nt
== END ==
LOC: PAIN 07:09
DX: Z76.0 Encounter for issue of repeat prescription (principal); I87.002 Postthrombotic syndrome without complications of left lower extremity; I73.9 Peripheral vascular disease, unspecified; M54.16 Radiculopathy, lumbar region; I10 Essential (primary) hypertension; F42.8 Other obsessive-compulsive disorder; F32.9 Major depressive disorder, single episode, unspecified; F41.9 Anxiety disorder, unspecified; Z79.899 Other long term (current) drug therapy; Z79.891 Long term (current) use of opiate analgesic; Z88.2 Allergy status to sulfonamides; Z88.8 Allergy status to other drugs, medicaments and biological substances

== ENCOUNTER → 2019-08-09 | Outpatient (CLI) | payer OTHER ==
[~2019-08-09] VITALS: Ht 152.4 cm; Wt 48.5 kg
--- NOTE | ~2019-08-09 | HPC ---
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 HISTORY OF PRESENT ILLNESS: This is a 63-year-old female who returns to the pain clinic today for a refill of her medications. She uses this morphine and hydrocodone to help treat her ongoing left leg and groin pain as a result of vasculopathy from a deep vein thrombosis. Today, she also reports that she fell recently into her dresser. She did go to the Emergency Room and bruised her hip. She did not have any broken bones, just a contusion and she is on Coumadin therapy. Today, she rates her pain at a 7/10 and it is a constant throbbing, sharp, burning pain; worse with any activity, standing and walking, but better with her compression hose as well as her medication. She denies any problems with daytime sleepiness or constipation that is not relieved by nkml-bct-uhkcjbj medications. ALLERGIES: URECHOLINE, SULFA, NITROFURANTOIN. CURRENT LIST OF MEDICATIONS: MS Contin 15 mg b.i.d., hydrocodone 10/325 p.r.n., MS Contin 30 mg daily, Voltaren gel, TriCor, Lipitor, Fosamax, Zantac, fish oil, Zoloft, Coumadin, Centrum Silver, Rosibel, Synthroid, Zestril, Flexeril, amlodipine and Coreg. PQRS: 1. She has a history of osteoarthritis in her hands. Denies any rheumatoid arthritis. 2. Height is 5 feet, weight is 107, BMI is 20. 3. Vital signs: Blood pressure 110/52, pulse is 65, respirations 14, oxygen sat is 98. 4. Pain score is 7/10. 5. Denies dizziness, does not need help walking or standing, has fallen in the last 3 months. 6. The patient is on Coumadin and also medicines for hypertension. 7. Opioid therapy is greater than 6 weeks; therefore, an opioid signed contract is on the chart. Risk assessment tool is low. Functional assessment is 55/70. 8. Recreational drug use, she denies. She is a former smoker and [place] [address] PAIN MANAGEMENT CONSULTATION Name: RUDY NINO [facility] [id number] Admission: 08/09/19 Attend Phys: Celsa Ha Discharge: Date of : 51 Report #: [id number] According to the prescription monitoring system, the patient is due to fill her medications on 08/24, she is here due to the holidays for an appointment prior to this date. Her current morphine mEq is 100 and 120 MMEs per day, well over the CDC guidelines. The patient has been stable on this dose. We have attempted to wean her in the past unsuccessfully, but she is able to be active with this current level of medications without side effects. PHYSICAL EXAMINATION: GENERAL: This is alert and orientated, very anxious 63-year-old female who appears her stated age, placing her current pain score at 7/10. HEENT: Normocephalic, atraumatic. Extraocular eye muscles are intact. Mucous membranes are moist. MUSCULOSKELETAL: She ambulates with a mild antalgic features. She has compression hose on her left leg that is tender, but no edema noted. She was from sitting to standing without any difficulty. Her lower extremity strength judged to be 5/5 in all major muscle groups. She does complain of some right hip tenderness from recent fall. ASSESSMENT: 1. Chronic left lower extremity postphlebitic syndrome and peripheral vascular insufficiency. 2. Lumbar radiculopathy. 3. Anxiety and obsessive compulsive disorder. 4. History of depression. 5. Management of high risk medications under terms of written opioid agreement. We reviewed the fact that opiate medications are being used to provide analgesia adequate to support activities of daily living, not attempting to achieve a specific pain score on the 0-10 Visual Analog Scale. The current opiate medications are providing sufficient analgesia to allow the patient to participate in activities of daily living. The patient is not exhibiting any aberrant behavior suggestive of drug diversion. The patient is not having any adverse reactions to medications. The patient is not suffering from daytime somnolence or mental acuity changes. The patient is managing opiate-induced constipation with appropriate lvcm-jzg-cmkadnq agents and dietary considerations. The patient was counseled on concern for caution with operating a motor vehicle while using opiate medications. PLAN: 1. We discussed treatment options with the patient today. The patient finds the medication very beneficial in controlling her pain. We explained to her that we will be sending her medications electronically to the pharmacy. The patient was very relieved and happy about this, stating that she will not have to worry about keeping track of her medications. She feels that will be so much better for her and less of a burden for her. [address] [address] PAIN MANAGEMENT CONSULTATION Name: RUDY NINO Room #: [facility]#: [id number] Admission: 08/09/19 Attend Phys: Celsa Ha Discharge: Date of : 51 Report #: [id number] 2. Scripts sent electronically today for her hydrocodone , #150 for today and 4-week release; MS Contin 15 mg b.i.d., #60 for 2 months and MS Contin 30 mg once daily, #30 for 2 months. These scripts were to be released on 08/24 and 09/21. 3. The patient states that she does not need Voltaren gel currently, but if she does need this before her next refill, we will gladly call this medicine in. 4. The patient is seen in collaboration today with Dr. Jacinto Grubbs. By: [id number] Celsa Ha /nt
[2019-08-09 14:11] VITALS: BP 110/52
--- NOTE | 2019-08-09 14:18 | NUR ---
Pain Clinic Assessment: 1. History of Osteoarthritis: hands History of Rheumatoid Arthritis: DENIES 2. Height: 5 ft. 0 in. 152.4 cm. Weight: 107.0 lb. oz. 48.535 kg. Patient's BMI: 20.9 3. Vital Signs: BP: 110/52 Pulse: 65 Resp: 14 Temp: 02 Sat: 98 ECG Mon: 4. Pain Intensity: 7 5. Fall Risk: Dizziness: N Needs help standing or walking: N Fallen in the last 3 months: Y Fall risk comments: FELL MAKING BED. WENT TO ER NO BREAK 6. Patient on Blood Thinner: Warfarin (Coumadin) 7. History of Hypertension: Y 8. Opioid Therapy greater than 6 weeks: Y Opiate Contract Signed: 11/07/17 9. Risk Assessment Tool Provided: LOW RISK 10/22 10. Functional Assessment Tool: 11. Recreational Drug Use: Never Drug Type: Tobacco Use: Former Smoker Tobacco Type: Amount or Packs/day: How Many Years: Alcohol Use: No Frequency: Quant:
== END ==
LOC: PAIN 07:06
DX: M54.16 Radiculopathy, lumbar region (principal); F41.9 Anxiety disorder, unspecified; F32.9 Major depressive disorder, single episode, unspecified; Z79.891 Long term (current) use of opiate analgesic

== ENCOUNTER → 2019-10-11 | Outpatient (CLI) | payer OTHER ==
[~2019-10-11] VITALS: Ht 152.4 cm; Wt 49.4 kg
[2019-10-11 12:39] VITALS: BP 123/63
--- NOTE | 2019-10-11 12:54 | NUR ---
Pain Clinic Assessment: 1. History of Osteoarthritis: HANDS BACK History of Rheumatoid Arthritis: DENIES 2. Height: 5 ft. 0 in. 152.4 cm. Weight: 109.0 lb. oz. 49.442 kg. Patient's BMI: 21.3 3. Vital Signs: BP: 123/63 Pulse: 62 Resp: 14 Temp: 02 Sat: 100 ECG Mon: 4. Pain Intensity: 7 5. Fall Risk: Dizziness: N Needs help standing or walking: N Fallen in the last 3 months: N Fall risk comments: FELL MAKING BED. WENT TO ER NO BREAK 6. Patient on Blood Thinner: Warfarin (Coumadin) 7. History of Hypertension: Y 8. Opioid Therapy greater than 6 weeks: Y Opiate Contract Signed: 11/07/17 9. Risk Assessment Tool Provided: LOW RISK 10/22 10. Functional Assessment Tool: 11. Recreational Drug Use: Never Drug Type: Tobacco Use: Former Smoker Tobacco Type: Amount or Packs/day: How Many Years: Alcohol Use: No Frequency: Quant:
--- NOTE | 2019-10-15 12:48 | HPC ---
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 HISTORY OF PRESENT ILLNESS: This is a pleasant 63-year-old female who returns to the pain clinic today for refill of her medications. She is reporting a pain score of 7/10 in her left leg and groin. She reports a throbbing, burning, tingly feeling, worse with standing, walking and prolonged sitting. She feels that her medication is quite beneficial as well as wearing her compression hose. Today, she would like a refill of her morphine and hydrocodone. The patient reports that she has seen a antique clocks repairer due to increase in her calcium score of over 500. He would like to do a cardiac catheterization procedure. The patient is very worried about going off her blood thinners and having more blood clots, so he is first ordering a PET stress test. She is waiting for other approval process from her insurance company before she has this procedure performed. If it is positive, then she will have to undergo a cardiac catheterization. She does have a significant family history of cardiac issues as well as increased calcium score. The patient is going to have this performed in the next few weeks. ALLERGIES: BETHANECHOL, SULFA AND NITROFURANTOIN. CURRENT LIST OF MEDICATIONS: MS Contin 15 mg b.i.d., MS Contin 30 mg daily, hydrocodone 10/325 p.r.n., fenofibrate, atorvastatin, Fosamax, acyclovir, Zantac, omega 3, sertraline, warfarin, multivitamin, fexofenadine, Synthroid, Flonase, calcium, Flexeril, amlodipine and Coreg. PQRS: 1. She has a history of osteoarthritic changes in her hands. Denies any rheumatoid arthritis. 2. Height is 5 feet, weight is 109, BMI is 21. 3. Vital signs, 123/63, pulse is 62, respirations 14, oxygen sat is 100. 4. Pain score is 7/10. [facility] [address] [place] [address] PAIN MANAGEMENT CONSULTATION Name: RUDY NINO Room #: REG [facility]#: [id number] Admission: 10/11/19 Attend Phys: Celsa Ha Discharge: Date of : 51 Report #: [id number] 5. Denies dizziness, does not need help walking or standing, has not fallen in the last 3 months. 6. The patient is on warfarin as well as medicines for hypertension. 7. Opioid therapy is greater than 6 weeks; therefore, an opioid signed contract is on the chart. Risk assessment tool is low. Functional assessment is 55/70. 8. Recreational drug use, she denies. She is a former smoker and does not drink alcohol. According to the prescription monitoring system, the patient is filling her medications in a timely fashion from only one provider. According to the CDC guidelines, her morphine mEq per day is 120. PHYSICAL EXAMINATION: GENERAL: This is alert and orientated, anxious appearing 63-year-old female who appears her stated age, placing her current pain score at 7/10. HEENT: Normocephalic, atraumatic. Extraocular eye muscles are intact. Mucous membranes are moist. MUSCULOSKELETAL: She has tenderness in her left leg that radiates from her groin to her ankle. She is wearing compression hose on this leg. No edema is noted. She moves from sitting to standing without any difficulty. Her lower extremity strength judged to be 5/5 in all major muscle groups with good sensation from L1-S2. ASSESSMENT: 1. Chronic left lower extremity postphlebitic syndrome and peripheral vascular insufficiency. 2. Lumbar radiculopathy. 3. Anxiety and obsessive compulsive disorder. 4. History of depression. 5. Management of high risk medications under terms of written opioid agreement. We reviewed the fact that opiate medications are being used to provide analgesia adequate to support activities of daily living, not attempting to achieve a specific pain score on the 0-10 Visual Analog Scale. The current opiate medications are providing sufficient analgesia to allow the patient to participate in activities of daily living. The patient is not exhibiting any aberrant behavior suggestive of drug diversion. The patient is not having any adverse reactions to medications. The patient is not suffering from daytime somnolence or mental acuity changes. The patient is managing opiate-induced constipation with appropriate zuob-nzw-slnrqkx agents and dietary considerations. The patient was counseled on concern for caution with operating a motor vehicle while using opiate medications. A physical exam was performed and the patient's functional status was evaluated. All patients with back pain were advised against the bed rest greater than 4 days and were advised to return to normal activities. Pain score assessment was [facility] [address] [place] [address] PAIN MANAGEMENT CONSULTATION Name: RUDY NINO Room #: REG [facility]#: [id number] Admission: 10/11/19 Attend Phys: Celsa Ha Discharge: Date of : 51 Report #: [id number] noted and the treatment plan was reviewed with the patient. All current medications, both prescribed and OTC were reviewed and reconciled on the electronic medical record. Tobacco screening was accomplished and smoking cessation was advised when indicated. BMI was noted and diet/exercise modification was recommended for all patients following outside normal parameters. I reviewed with the patient today their responsibilities to safeguard prescription medications, reviewed their responsibility to utilize medications only as prescribed by the physician. They are to seek and receive pain medications only from 1 physician group ( [facility]). They are to use 1 pharmacy and keep the clinic informed if they change pharmacies. Their responsibilities include making followup visits in a timely fashion and to avoid abrupt discontinuation of medication usage. Their responsibilities further include bringing their medications (bottles from the pharmacy with residual pills) to the visit for possible confirmation of pill counts and the patient understands it is their responsibility to submit to random drug screens to ensure both that the medications prescribed are present, and that no other controlled substances are present. All prescriptions provided today were generated electronically. PLAN: 1. We discussed treatment options with the patient today. The patient finds her medications very beneficial. She states that she likes having her prescriptions electronically sent to the pharmacy as she does not have to worry about them being lost at home. Dr. Jacinto Grubbs will electronically send her MS Contin 15 mg b.i.d., #60 for today and 4 weeks supply, MS Contin 30 mg once daily and hydrocodone 10/325, #150 for today and 4 weeks supply. 2. I encouraged the patient to keep us abreast of her cardiac issues. The patient verbalizes that she will have the records sent to our office. 3. The patient is seen in collaboration with Dr. Jacinto Grubbs. <ELECTRONICALLY SIGNED> By: Celsa Ha 10/15/19 1248 [id number] Celsa Ha /nt
== END ==
LOC: PAIN 06:50
DX: I87.002 Postthrombotic syndrome without complications of left lower extremity (principal); G89.29 Other chronic pain; I73.9 Peripheral vascular disease, unspecified; M54.16 Radiculopathy, lumbar region; F41.9 Anxiety disorder, unspecified; F42.9 Obsessive-compulsive disorder, unspecified; F32.9 Major depressive disorder, single episode, unspecified; Z79.82 Long term (current) use of aspirin; Z79.891 Long term (current) use of opiate analgesic; Z79.899 Other long term (current) drug therapy

== ENCOUNTER → 2019-11-29 | Outpatient (CLI) | payer OTHER | LOC: PAIN 07:36 | DX: M31.8 Other specified necrotizing vasculopathies (principal); G89.29 Other chronic pain; M54.16 Radiculopathy, lumbar region; F41.9 Anxiety disorder, unspecified; F32.9 Major depressive disorder, single episode, unspecified; F11.20 Opioid dependence, uncomplicated; I73.9 Peripheral vascular disease, unspecified; I87.002 Postthrombotic syndrome without complications of left lower extremity ==

== ENCOUNTER → 2020-01-28 | Outpatient (CLI) | payer OTHER | LOC: PAIN 07:03 | DX: I87.002 Postthrombotic syndrome without complications of left lower extremity (principal); G89.29 Other chronic pain; I73.9 Peripheral vascular disease, unspecified; M54.16 Radiculopathy, lumbar region; F41.9 Anxiety disorder, unspecified; F42.9 Obsessive-compulsive disorder, unspecified; F11.90 Opioid use, unspecified, uncomplicated; Z88.2 Allergy status to sulfonamides; Z88.8 Allergy status to other drugs, medicaments and biological substances; Z86.718 Personal history of other venous thrombosis and embolism ==

== ENCOUNTER → 2020-03-24 | Outpatient (CLI) | payer OTHER ==
[~2020-03-24] VITALS: Ht 152.4 cm; Wt 48.7 kg
[~2020-03-24] MED LIST changes: +MIRALAX119 GM PO
[2020-03-24 11:07] VITALS: BP 120/60
--- NOTE | 2020-03-24 11:26 | NUR ---
Pain Clinic Assessment: 1. History of Osteoarthritis: HANDS NECK ELBOWS History of Rheumatoid Arthritis: NO 2. Height: 5 ft. 0 in. 152.4 cm. Weight: 107.4 lb. oz. 48.716 kg. Patient's BMI: 21.0 3. Vital Signs: BP: 120/60 Pulse: 60 Resp: 14 Temp: 02 Sat: 97 ECG Mon: 4. Pain Intensity: 6 5. Fall Risk: Dizziness: N Needs help standing or walking: N Fallen in the last 3 months: N Fall risk comments: FELL MAKING BED. WENT TO ER NO BREAK 6. Patient on Blood Thinner: Warfarin (Coumadin) 7. History of Hypertension: Y 8. Opioid Therapy greater than 6 weeks: Y Opiate Contract Signed: 11/07/17 9. Risk Assessment Tool Provided: LOW RISK 3 10. Functional Assessment Tool: / 11. Recreational Drug Use: Never Drug Type: Tobacco Use: Former Smoker Tobacco Type: Amount or Packs/day: How Many Years: Alcohol Use: No Frequency: Quant:
--- NOTE | 2020-03-25 08:52 | HPC ---
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 HISTORY OF PRESENT ILLNESS: This is a very pleasant 64-year-old female who returns to the Pain Clinic for followup for her medications. She is rating her pain score as 6/10 today. This is an average score for her stating most of her pain is located in her left groin and down her left leg as a result of her histories of vasculopathy. She believes that her pain medication does control most of her pain. She is able to function and take care of herself in her house. Her does aid her with some of the more difficult task due to the fact that her pain is increased with standing and walking. She describes it as a burning, pins and needles in her leg. She does wear compression hose at all times. The patient reports that she is going to see Dr. Cuevas tomorrow to have him evaluate her carotid arteries. She recently had a PET myocardial scan that was negative, which did not require her to have a cardiac catheterization, which she was relieved, but they have sent her to Dr. Cuevas to discuss her carotid arteries. The patient also reports she recently had an EGD and colonoscopy that were negative for any ulcers or polyps and she was very pleased with those results. She denies problems with constipation as long as she takes her MiraLax on a daily basis. ALLERGIES: URECHOLINE, SULFA, AND NITROFURANTOIN. CURRENT LIST OF MEDICATIONS: MS Contin 15 mg b.i.d., MS Contin 30 mg daily, hydrocodone up to 5 times a day, MiraLax, TriCor, atorvastatin, Flomax, Zovirax, fish oil, Zoloft, Coumadin, multivitamin, Rosibel, Synthroid, Flonase, calcium, Flexeril, amlodipine and carvedilol. PQRS: 1. She has arthritic changes in her hands and neck and elbows. Denies any rheumatoid arthritis. 2. Height is 5 feet, weight is 107, BMI is 21. 3. Vital signs 120/60, pulse is 60, respirations 14, oxygen sat is 97%. [place] [address] PAIN MANAGEMENT CONSULTATION Name: RUDY NINO Room #: [facility]#: [id number] Admission: 03/24/20 Attend Phys: Celsa Ha Discharge: Date of : 51 Report #: [id number] 4. Pain score 6/10. 5. She denies dizziness, does not need help walking or standing, has not fallen in the last 3 months. 6. The patient is on warfarin as well as medicines for hypertension. 7. Opioid therapy is greater than 6 weeks; therefore, an opioid signed contract is on the chart. Her risk assessment tool is low. Her functional assessment is 55/70. 8. Recreational drug use, she denies. She is a former smoker and does not drink alcohol. According to the prescription monitoring system, she is filling appropriately. She will be due to fill her opioids next week. Her morphine milliequivalent is high as at 120. She is a legacy patient of Dr. Jacinto Grubbs and we do follow her very closely. She has not had any issues with her medications and we do check random drug screens periodically as well on this patient. There is one on the chart that is appropriate for her medications. We will obtain a specimen at her next visit. PHYSICAL EXAMINATION: GENERAL: This is a pleasant, but anxious 64-year-old. She is obsessive compulsive by her own assessment. She places her pain score today at 6/10. HEENT: Normocephalic, atraumatic. Extraocular eye muscles are intact. She is wearing a mask. MUSCULOSKELETAL: She wears compression stockings on her legs bilaterally with no edema noted today. She walks with mild antalgic features. She has tenderness in her left leg that radiates from her groin to her ankle. Her lower extremity strength judged to be 5/5 in all major muscle groups. IMPRESSION: 1. Chronic left lower extremity postphlebitic syndrome and peripheral vascular insufficiency. 2. Anxiety and obsessive compulsive disease. 3. Lumbar radiculopathy. 4. History of depression. 5. Management of high risk medications under terms of written opioid agreement. We reviewed the fact that opiate medications are being used to provide analgesia adequate to support activities of daily living, not attempting to achieve a specific pain score on the 0-10 Visual Analog Scale. The current opiate medications are providing sufficient analgesia to allow the patient to participate in activities of daily living. The patient is not exhibiting any aberrant behavior suggestive of drug diversion. The patient is not having any adverse reactions to medications. The patient is not suffering from daytime somnolence or mental acuity changes. The patient is managing opiate-induced constipation with appropriate [id number] agents and dietary considerations. The patient was counseled on concern for caution with operating [address] [place] [address] PAIN MANAGEMENT CONSULTATION Name: RUDY NINO Room #: [facility].#: [id number] Admission: 03/24/20 Attend Phys: Celsa Ha Discharge: Date of : 51 Report #: [id number] a motor vehicle while using opiate medications. PLAN: 1. We discussed treatment options with the patient today. The patient finds her medications very beneficial allowing her to be as active as she would like with minimal side effects. She does suffer from constipation, but has all of her life and is treated with MiraLax with good results. Today, we will have Dr. Jacinto Grubbs send electronically her morphine sulfate 30 mg 1 tablet a day to be released on 04/03/2020 and 05/01/2020. Second medication will be morphine ER 15 mg b.i.d. again released on 04/03/2020 and 05/01/2019 and hydrocodone 10 #150 with the same release dates. 2. I instructed the patient that she will need to follow up with Dr. Jacinto Grubbs at her next visit for her appointment. He did collaborate care today. At her next visit, we will also collect a random drug screen. <ELECTRONICALLY SIGNED> By: Celsa Ha 03/25/20 [id number] Celsa Ha /antonino
== END ==
LOC: PAIN 06:49
PROVIDERS: ATTEND Clinical Nurse Specialist Adult Health
DX: G89.29 Other chronic pain (principal); I87.092 Postthrombotic syndrome with other complications of left lower extremity; M54.16 Radiculopathy, lumbar region; F42.9 Obsessive-compulsive disorder, unspecified; F41.8 Other specified anxiety disorders; Z88.8 Allergy status to other drugs, medicaments and biological substances; Z79.891 Long term (current) use of opiate analgesic; Z79.899 Other long term (current) drug therapy; Z86.59 Personal history of other mental and behavioral disorders; Z86.718 Personal history of other venous thrombosis and embolism

== ENCOUNTER → 2020-05-19 | Outpatient (CLI) | payer OTHER ==
[~2020-05-19] VITALS: Ht 152.4 cm; Wt 49.4 kg
[2020-05-19 13:41] VITALS: BP 114/70
--- NOTE | 2020-05-19 14:30 | NUR ---
Pain Clinic Assessment: 1. History of Osteoarthritis: HANDS NECK ELBOWS History of Rheumatoid Arthritis: NO 2. Height: 5 ft. 0 in. 152.4 cm. Weight: 108.8 lb. oz. 49.351 kg. Patient's BMI: 21.2 3. Vital Signs: BP: 114/70 Pulse: 64 Resp: 16 Temp: 02 Sat: 100 ECG Mon: 4. Pain Intensity: 7 5. Fall Risk: Dizziness: N Needs help standing or walking: N Fallen in the last 3 months: N Fall risk comments: FELL MAKING BED. WENT TO ER NO BREAK 6. Patient on Blood Thinner: Warfarin (Coumadin) 7. History of Hypertension: Y 8. Opioid Therapy greater than 6 weeks: Y Opiate Contract Signed: 11/07/17 9. Risk Assessment Tool Provided: LOW RISK 3 10. Functional Assessment Tool: 11. Recreational Drug Use: Never Drug Type: Tobacco Use: Former Smoker Tobacco Type: Amount or Packs/day: How Many Years: Alcohol Use: No Frequency: Quant:
--- NOTE | 2020-05-20 08:24 | HPC ---
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 HISTORY OF PRESENT ILLNESS: This is a pleasant 64-year-old female who is a Legacy patient of Dr. Jacinto Grubbs who is returning today for refill of her medications. Today, she reports a pain score 7/10 in her left groin that radiates into her left leg. It is a constant, burning, pins and needles per her report. She does wear a compression hose on that at all times, feels that is beneficial as well as sitting or elevating her leg. She believes that walking and standing for prolonged periods of time does increase her pain. She denies problems with constipation or daytime somnolence. Today, she does report she did see Dr. Cuevas regarding some ongoing carotid artery issues. She was happy to learn she does not need to have further surgery that her carotids are not blocked significantly in the last ultrasound that she had done by Dr. Cuevas's office. ALLERGIES: SULFA, NITROFURANTOIN AND URECHOLINE. CURRENT LIST OF MEDICATIONS: MS Contin 15 mg b.i.d., MS Contin 30 mg daily, hydrocodone, MiraLax, TriCor, atorvastatin, Flomax, Zovirax, fish oil, Zoloft, warfarin, multivitamin, Rosibel, Synthroid, Flonase, calcium, Flexeril, amlodipine and carvedilol. PQRS: 1. She has osteoarthritic changes in her hands, neck, and elbows. Denies rheumatoid arthritis. 2. Height is 5 feet, weight is 108, BMI is 21. 3. Vital signs; blood pressure 114/70, pulse is 64, respirations 16, oxygen sat is 100. 4. Pain score 7/10. 5. Denies dizziness, does not need help walking or standing, has not fallen in the last 3 months. 6. The patient is on warfarin as well as medicines for hypertension. 7. Opioid therapy is greater than 6 weeks; therefore, an opioid signed contract is on the chart. Her risk assessment is low. Functional assessment is 55/70. 8. Recreational drug use, she denies. She is a [place] [address] PAIN MANAGEMENT CONSULTATION Name: RUDY NINO Room #: REG [facility] Bassem#: [id number] Admission: 05/19/20 Attend Phys: Celsa Ha Discharge: Date of : 51 Report #: [id number] drink alcohol. According to the prescription monitoring system, the patient is due to fill her medications in about 2 weeks, filling them appropriately. Her morphine milliequivalent is above the CDC guidelines at 120. She has been stable on this dose for quite some time and she is a Legacy patient of Dr. Jacinto Grubbs'chitra. We will collect a random drug screen on this patient today. She did take her medicines this morning. PHYSICAL EXAMINATION: GENERAL: This is alert and orientated, very anxious appearing 64-year-old, placing her current pain score at 7/10 today. HEENT: Normocephalic, atraumatic. Extraocular eye muscles are intact. She is wearing a mask and glasses. MUSCULOSKELETAL: She is wearing compression stockings on her legs bilaterally, no edema noted. She has a slightly antalgic gait. Lower extremity strength judged to be 5/5 in all major muscle groups. IMPRESSION: 1. Chronic left lower extremity, postphlebitic syndrome and peripheral vascular insufficiency. 2. Anxiety and obsessive compulsive disease. 3. Lumbar radiculopathy. 4. History of depression. 5. Management of high risk medications under terms of written opioid agreement. We reviewed the fact that opiate medications are being used to provide analgesia adequate to support activities of daily living, not attempting to achieve a specific pain score on the 0-10 Visual Analog Scale. The current opiate medications are providing sufficient analgesia to allow the patient to participate in activities of daily living. The patient is not exhibiting any aberrant behavior suggestive of drug diversion. The patient is not having any adverse reactions to medications. The patient is not suffering from daytime somnolence or mental acuity changes. The patient is managing opiate-induced constipation with appropriate vfmh-nip-dapzpni agents and dietary considerations. The patient was counseled on concern for caution with operating a motor vehicle while using opiate medications. A physical exam was performed and the patient's functional status was evaluated. All patients with back pain were advised against the bed rest greater than 4 days and were advised to return to normal activities. Pain score assessment was noted and the treatment plan was reviewed with the patient. All current medications, both prescribed and OTC were reviewed and reconciled on the electronic medical record. Tobacco screening was accomplished and smoking cessation was advised when indicated. BMI was noted and diet/exercise modification was recommended for all patients following outside normal [facility] [address] [place] [address] PAIN MANAGEMENT CONSULTATION Name: RUDY NINO Room #: [facility]#: [id number] Admission: 05/19/20 Attend Phys: Celsa Ha Discharge: Date of : 51 Report #: [id number] parameters. I reviewed with the patient today their responsibilities to safeguard prescription medications, reviewed their responsibility to utilize medications only as prescribed by the physician. They are to seek and receive pain medications only from 1 physician group ( [facility]). They are to use 1 pharmacy and keep the clinic informed if they change pharmacies. Their responsibilities include making followup visits in a timely fashion and to avoid abrupt discontinuation of medication usage. Their responsibilities further include bringing their medications (bottles from the pharmacy with residual pills) to the visit for possible confirmation of pill counts and the patient understands it is their responsibility to submit to random drug screens to ensure both that the medications prescribed are present, and that no other controlled substances are present. All prescriptions provided today were generated electronically. PLAN: 1. We discussed treatment options with the patient today. The patient finds her medications very beneficial allowing her significant analgesia and allowing her to be as active as she would like at home. We will continue on her MS Contin 30 mg daily and 15 mg b.i.d. These will be written for today and 4-week supply by Dr. Grubbs as well as her hydrocodone 10/325. She is allowed 5 tablets a day, #150. 2. We will collect a random drug screen on this patient today since it has been greater than a year since our previous specimen. 3. The patient is advised to call in a timely fashion to make appointment with Dr. Jacinto Grubbs to see him at the end of June for her next refill. The patient verbalizes understanding. <ELECTRONICALLY SIGNED> By: Celsa Ha 05/20/20 0824 [id number] [id number] Celsa Ha /nt
== END ==
LOC: PAIN 07:08
PROVIDERS: ATTEND Clinical Nurse Specialist Adult Health
DX: I87.002 Postthrombotic syndrome without complications of left lower extremity (principal); G89.29 Other chronic pain; I73.9 Peripheral vascular disease, unspecified; F42.8 Other obsessive-compulsive disorder; M54.16 Radiculopathy, lumbar region; F41.8 Other specified anxiety disorders; F11.20 Opioid dependence, uncomplicated; Z86.718 Personal history of other venous thrombosis and embolism; Z88.8 Allergy status to other drugs, medicaments and biological substances; Z79.899 Other long term (current) drug therapy

== ENCOUNTER → 2020-07-21 | Outpatient (CLI) | payer OTHER ==
[~2020-07-21] VITALS: Ht 152.4 cm; Wt 50.4 kg
[~2020-07-21] MED LIST changes: +B-COMPLEX WIT400 MCG PO; +OMEPRAZOLE20 M2 PO; +PROLIA60 MG/1 ML
[2020-07-21 14:08] VITALS: BP 136/62
--- NOTE | 2020-07-21 14:38 | NUR ---
Pain Clinic Assessment: 1. History of Osteoarthritis: HANDS NECK ELBOWS History of Rheumatoid Arthritis: NO 2. Height: 5 ft. 0 in. 152.4 cm. Weight: 111.2 lb. oz. 50.440 kg. Patient's BMI: 21.7 3. Vital Signs: BP: 136/62 Pulse: 60 Resp: 12 Temp: 02 Sat: 100 ECG Mon: 4. Pain Intensity: 7 5. Fall Risk: Dizziness: N Needs help standing or walking: N Fallen in the last 3 months: N Fall risk comments: FELL MAKING BED. WENT TO ER NO BREAK 6. Patient on Blood Thinner: Warfarin (Coumadin) 7. History of Hypertension: Y 8. Opioid Therapy greater than 6 weeks: Y Opiate Contract Signed: 11/07/17 9. Risk Assessment Tool Provided: LOW RISK 3 10. Functional Assessment Tool: / 11. Recreational Drug Use: Never Drug Type: Tobacco Use: Former Smoker Tobacco Type: Amount or Packs/day: How Many Years: Alcohol Use: No Frequency: Quant:
== END ==
LOC: PAIN 06:54
PROVIDERS: ATTEND Anesthesiology Pain Medicine
DX: M79.604 Pain in right leg (principal); M79.605 Pain in left leg; F42.9 Obsessive-compulsive disorder, unspecified; G89.4 Chronic pain syndrome; Z88.8 Allergy status to other drugs, medicaments and biological substances; Z79.899 Other long term (current) drug therapy

== ENCOUNTER → 2020-10-09 | Outpatient (CLI) | payer OTHER ==
[~2020-10-09] VITALS: Ht 152.4 cm; Wt 51.0 kg
--- NOTE | ~2020-10-09 | HPC ---
[facility] [address] [address] PAIN MANAGEMENT CONSULTATION Name: RUDY NINO Room #: REG [facility] Bassem#: [id number] Admission: 10/09/20 Attend Phys: Celsa Ha Discharge: Date of : 51 Report #: [id number] THIS REPORT FOR: cc: Nathaniel Harding,Nathaniel Simpson,Celsa GONZALES ~ DATE OF SERVICE: 10/09/2020 CHIEF COMPLAINT: Chronic bilateral leg pain, history of DVTs, and vasculopathy. HISTORY OF PRESENT ILLNESS: As you know, this is a 64-year-old female, who returns to the pain clinic today for refill of her medications. She has a longstanding history with our clinic and has been stable on her current MS Contin and hydrocodone dose for quite some time. Today, she reports her pain score of 6-7, most problematic in her left groin that radiates down her left leg. She is wearing compression hose on her lower extremities. She reports a burning, pins and needles constant pain sensation in her legs. Her pain is increased with walking and standing, but she believes her pain is controlled with her current morphine dose. She does complain of some constipation issues and does take MiraLax every night, which seems to remedy her constipation issues. She also reports sitting and reclining in a chair as beneficial for her pain. The patient asking today if we have any insight or ways to help her obtain a COVID vaccination. She has been unable to have one done. She is 64 years old. ALLERGIES: URECHOLINE, SULFA, NITROFURANTOIN. CURRENT LIST OF MEDICATIONS: MS Contin 15 mg b.i.d., MS Contin 30 mg in the morning, hydrocodone 10/325 up to 5 times a day p.r.n., folic acid, omeprazole, Prolia, MiraLax, fenofibrate, Lipitor, acyclovir, fish oil, Zoloft, Coumadin, multivitamin, Synthroid, Flonase, calcium, Flexeril, amlodipine and carvedilol. PQRS: 1. She has a history of osteoarthritis in her hands bilaterally. Denies any rheumatoid arthritis. 2. Height is 5 feet, weight is 112, BMI is 22. 3. Vital signs 118/66, pulse is 61, respirations 14, oxygen sat is 97%. 4. Pain score is 6-7. 5. Denies dizziness, does not need assistance with walking, and has not fallen in the last 3 months. 6. The patient is on warfarin as well as medications for hypertension. 7. Opioid therapy is greater than 6 weeks; therefore, an opioid signed contract is on the chart. Risk assessment is low. Functional assessment is 55/70. 8. Recreational drug use, she denies. She is a former smoker and does not drink alcohol. [address] [address] PAIN MANAGEMENT CONSULTATION Name: RUDY NINO [id number] Admission: 10/09/20 Attend Phys: Celsa Ha Discharge: Date of : 51 Report #: [id number] According to the prescription monitoring system, she is due to fill her medications on 10/20, filling them appropriately. Her morphine milliequivalent is higher than the CDC guidelines. We have worked on decreasing this medication, but she has been stable and closely monitored. It is currently 120 MME. There is a drug screen on the chart that is appropriate as well. PHYSICAL EXAMINATION: GENERAL: This is alert and orientated, anxious 64-year-old who appears her stated age, placing her current pain score at 6/10 today. HEENT: Normocephalic, atraumatic. Extraocular eye muscles are intact. She is wearing a mask. MUSCULOSKELETAL: She has compression hose on bilaterally with good pulses present. She has pain in her groin that radiates down her right leg. Lower extremity strength is symmetrical. IMPRESSION: 1. Chronic intractable leg pain with vasculopathy. 2. Obsessive compulsive disorder. 3. Anxiety disorder. 4. Chronic pain syndrome management with opioid medications under terms of written agreement. 5. Lumbar radiculopathy. PLAN: 1. We discussed treatment options with the patient today. The patient finds her medications very beneficial allowing her significant analgesia and allowing her to participate in activities of daily living and her housework. She is not having any adverse reactions and does manage her constipation with MiraLax on a daily basis. Therefore, we will continue her on her MS Contin 30 mg once a day. Her morphine sulfate 15 mg twice a day and hydrocodone 10/325 up to 5 times a day, #150. These will all be sent electronically by Dr. Jacinto Grubbs, who I collaborated care with. He will send fills for 10/20, 11/17 and 12/15. 2. We discussed in depth COVID vaccinations. The patient is on the list through [facility] where she lives. She is wondering if we have any alternative options for her to obtain a vaccine. She is upset that her who is younger than her has already received his first vaccination. I encouraged her to call [facility]. I have heard are offering vaccinations as well as [facility] 3. The patient is seen today in collaboration with Dr. Jacinto Grubbs. Greater than 30 minutes were spent preparing for her visit, seeing the patient and dictating on her today. By: [id number] Celsa Ha /antonino
[2020-10-09 14:32] VITALS: BP 118/66
--- NOTE | 2020-10-09 14:47 | NUR ---
Pain Clinic Assessment: 1. History of Osteoarthritis: HANDS NECK ELBOWS History of Rheumatoid Arthritis: NO 2. Height: 5 ft. 0 in. 152.4 cm. Weight: 112.4 lb. oz. 50.984 kg. Patient's BMI: 22.0 3. Vital Signs: BP: 118/66 Pulse: 61 Resp: 14 Temp: 02 Sat: 97 ECG Mon: 4. Pain Intensity: 6-7 5. Fall Risk: Dizziness: N Needs help standing or walking: N Fallen in the last 3 months: N Fall risk comments: FELL MAKING BED. WENT TO ER NO BREAK 6. Patient on Blood Thinner: Warfarin (Coumadin) 7. History of Hypertension: Y 8. Opioid Therapy greater than 6 weeks: Y Opiate Contract Signed: 11/07/17 9. Risk Assessment Tool Provided: LOW RISK 3 10. Functional Assessment Tool: 55/70 11. Recreational Drug Use: Never Drug Type: Tobacco Use: Former Smoker Tobacco Type: Amount or Packs/day: How Many Years: Alcohol Use: No Frequency: Quant:
== END ==
LOC: PAIN 07:06
PROVIDERS: ATTEND Clinical Nurse Specialist Adult Health
DX: M79.604 Pain in right leg (principal); M79.605 Pain in left leg; F42.9 Obsessive-compulsive disorder, unspecified; F41.9 Anxiety disorder, unspecified; G89.4 Chronic pain syndrome; M54.16 Radiculopathy, lumbar region; Z86.718 Personal history of other venous thrombosis and embolism; Z88.8 Allergy status to other drugs, medicaments and biological substances; Z79.899 Other long term (current) drug therapy

== ENCOUNTER → 2020-12-29 | Outpatient (CLI) | payer OTHER ==
[~2020-12-29] VITALS: Ht 152.4 cm; Wt 51.2 kg
[~2020-12-29] MED LIST changes: +NITROSTAT0.4 M1 SUBLING
[2020-12-29 13:43] VITALS: BP 141/70
--- NOTE | 2020-12-29 13:45 | NUR ---
Pain Clinic Assessment: 1. History of Osteoarthritis: HANDS NECK ELBOWS History of Rheumatoid Arthritis: NO 2. Height: 5 ft. 0 in. 152.4 cm. Weight: 112.8 lb. oz. 51.166 kg. Patient's BMI: 22.0 3. Vital Signs: BP: 141/70 Pulse: 61 Resp: 18 Temp: 02 Sat: 97 ECG Mon: 4. Pain Intensity: 7 5. Fall Risk: Dizziness: N Needs help standing or walking: N Fallen in the last 3 months: N Fall risk comments: FELL MAKING BED. WENT TO ER NO BREAK 6. Patient on Blood Thinner: Warfarin (Coumadin) 7. History of Hypertension: Y 8. Opioid Therapy greater than 6 weeks: Y Opiate Contract Signed: 11/07/17 9. Risk Assessment Tool Provided: LOW RISK 3 10. Functional Assessment Tool: 11. Recreational Drug Use: Never Drug Type: Tobacco Use: Former Smoker Tobacco Type: Amount or Packs/day: How Many Years: Alcohol Use: No Frequency: Quant:
== END ==
LOC: PAIN 11:01
PROVIDERS: ATTEND Clinical Nurse Specialist Adult Health
DX: I73.9 Peripheral vascular disease, unspecified (principal); F41.1 Generalized anxiety disorder; F42.8 Other obsessive-compulsive disorder; G89.4 Chronic pain syndrome; Z79.01 Long term (current) use of anticoagulants; Z87.891 Personal history of nicotine dependence; Z88.8 Allergy status to other drugs, medicaments and biological substances; Z79.899 Other long term (current) drug therapy

== ENCOUNTER → 2021-03-23 | Outpatient (CLI) | payer OTHER ==
[~2021-03-23] VITALS: Ht 152.4 cm; Wt 52.0 kg
[2021-03-23 13:50] VITALS: BP 129/62
--- NOTE | 2021-03-23 13:59 | NUR ---
Pain Clinic Assessment: 1. History of Osteoarthritis: HANDS NECK ELBOWS History of Rheumatoid Arthritis: NO 2. Height: 5 ft. 0 in. 152.4 cm. Weight: 114.6 lb. oz. 51.982 kg. Patient's BMI: 22.4 3. Vital Signs: BP: 129/62 Pulse: 55 Resp: 14 Temp: 02 Sat: 97 ECG Mon: 4. Pain Intensity: 7 5. Fall Risk: Dizziness: N Needs help standing or walking: N Fallen in the last 3 months: N Fall risk comments: FELL MAKING BED. WENT TO ER NO BREAK 6. Patient on Blood Thinner: Warfarin (Coumadin) 7. History of Hypertension: Y 8. Opioid Therapy greater than 6 weeks: Y Opiate Contract Signed: 11/07/17 9. Risk Assessment Tool Provided: LOW RISK 3 10. Functional Assessment Tool: 11. Recreational Drug Use: Never Drug Type: Tobacco Use: Former Smoker Tobacco Type: Amount or Packs/day: How Many Years: Alcohol Use: No Frequency: Quant:
== END ==
LOC: PAIN 07:45
PROVIDERS: ATTEND Clinical Nurse Specialist Adult Health
DX: M31.9 Necrotizing vasculopathy, unspecified (principal); G89.4 Chronic pain syndrome; F42.9 Obsessive-compulsive disorder, unspecified; F41.9 Anxiety disorder, unspecified; Z79.891 Long term (current) use of opiate analgesic; Z79.899 Other long term (current) drug therapy

== ENCOUNTER → 2021-06-18 | Outpatient (CLI) | payer OTHER ==
[~2021-06-18] VITALS: Ht 152.4 cm; Wt 51.8 kg
[2021-06-18 14:10] VITALS: BP 142/64
== END ==
LOC: PAIN 12:50
PROVIDERS: ATTEND Anesthesiology Pain Medicine
DX: M31.8 Other specified necrotizing vasculopathies (principal); M79.604 Pain in right leg; M79.605 Pain in left leg; F41.8 Other specified anxiety disorders; Z87.891 Personal history of nicotine dependence; Z88.8 Allergy status to other drugs, medicaments and biological substances; Z79.899 Other long term (current) drug therapy

== ENCOUNTER → 2021-09-07 | Outpatient (CLI) | payer OTHER ==
[~2021-09-07] VITALS: Ht 152.4 cm; Wt 51.9 kg
[2021-09-07 11:09] VITALS: BP 138/64
--- NOTE | 2021-09-07 11:15 | NUR ---
Pain Clinic Assessment: 1. History of Osteoarthritis: HANDS NECK ELBOWS History of Rheumatoid Arthritis: NO 2. Height: 5 ft. 0 in. 152.4 cm. Weight: 114.4 lb. oz. 51.891 kg. Patient's BMI: 22.3 3. Vital Signs: BP: 138/64 Pulse: 61 Resp: 14 Temp: 02 Sat: 100 ECG Mon: 4. Pain Intensity: 6 5. Fall Risk: Dizziness: N Needs help standing or walking: N Fallen in the last 3 months: N Fall risk comments: FELL MAKING BED. WENT TO ER NO BREAK 6. Patient on Blood Thinner: Warfarin (Coumadin) 7. History of Hypertension: Y 8. Opioid Therapy greater than 6 weeks: Y Opiate Contract Signed: 11/07/17 9. Risk Assessment Tool Provided: LOW RISK 3 10. Functional Assessment Tool: 55/ 11. Recreational Drug Use: Never Drug Type: Tobacco Use: Former Smoker Tobacco Type: Amount or Packs/day: How Many Years: Alcohol Use: No Frequency: Quant:
== END ==
LOC: PAIN 07:47
PROVIDERS: ATTEND Clinical Nurse Specialist Adult Health
DX: M79.604 Pain in right leg (principal); M79.605 Pain in left leg; F41.9 Anxiety disorder, unspecified; Z87.891 Personal history of nicotine dependence; Z88.8 Allergy status to other drugs, medicaments and biological substances; Z79.01 Long term (current) use of anticoagulants; Z79.899 Other long term (current) drug therapy